=== PATIENT | male | born 2000 | race Caucasian/White ===

== ENCOUNTER 2021-12-18 05:55 | Day surgery (SDC) | payer OTHER, MEDICARE, MEDICAID ==
[~2021-12-18] VITALS: Ht 152.4 cm; Wt 37.7 kg
[~2021-12-18 05:55] MED LIST: CLON0.1T2 PO; DIVA125T32 PO; MELA5TAB40 PO; POLY17PO47 PO; THIO10TA PO
[2021-12-18] MEDS ORDERED: LIDOCAINE/PF 2% 5 ML SYRINGE IVP ONE (05:56)
[2021-12-18] MEDS ORDERED: DEXAMETHASONE SOD PHOS 4 MG/ML VIAL IVP ONE (05:56)
[2021-12-18] MEDS ORDERED: MIDAZOLAM HCL 2 MG/2 ML VIAL IVP ONE (05:56)
[2021-12-18] MEDS ORDERED: ONDANSETRON HCL 4 MG/2 ML VIAL IVP ONE (05:56)
[2021-12-18] MEDS ORDERED: FentaNYL CITRATE PF 100 MCG/2 ML VIAL IVP ONE (05:56)
[2021-12-18] MEDS ORDERED: KETAMINE HCL 50 MG/ML 10 ML VIAL IVP ONE (05:56)
[2021-12-18] MEDS ORDERED: PROPOFOL 1% 20 ML VIAL IVP ONE (05:56)
[2021-12-18] MEDS ORDERED: ROCURONIUM BROMIDE 10 MG/ML 5 ML VIAL IVP ONE (05:56)
[2021-12-18] MEDS ORDERED: RINGERS SOLUTION,LACTATED 1,000 ML IV ONE ×2 (06:04→06:30)
[2021-12-18 06:34] LABS: COVID AG,FIA SOURCE NASOPHARYNGEAL
[2021-12-18] MEDS ORDERED: AMPICILLIN SODIUM 2 GM/NS 100 ML IV ONE (07:30)
[2021-12-18 07:34] LABS: BASOPHILS % (AUTO) 0.2 % (0.0-2.0); EOSINOPHILS % (AUTO) 0.1 % (1.0-6.0); HEMATOCRIT 38.6 % (41-53); HEMOGLOBIN 13.1 g/dL (13.5-17.5); LYMPHOCYTES % (AUTO) 29.4 % (22.0-44.0); MEAN CORPUSCULAR HEMOGLOBIN 28.3 pg (26.0-34.0); MEAN CORPUSCULAR HGB CONC 33.9 G/dL (31.0-37.0); MEAN CORPUSCULAR VOLUME 83 fL (80-100); MONOCYTES % (AUTO) 9.6 % (2.0-9.0); NEUTROPHILS # (AUTO) 6.2 K/uL (1.8-7.7); NEUTROPHILS % (AUTO) 60.7 % (40.0-70.0); PLATELET COUNT (AUTO) 212 K/uL (150-450); RED BLOOD CELL COUNT(AUTO) 4.63 MIL/uL (4.50-5.90); RED CELL DISTRIBUTION WIDTH 16.7 % (11.5-14.5)
[2021-12-18] MEDS ORDERED: CLINDAMYCIN 600 MG/D5% WATER 50 ML IV ONE (07:45)
[2021-12-18 07:48] LABS: ANION GAP 14 mmol/L (8-16); CARBON DIOXIDE 23 mmol/L (22-29); CHLORIDE 107 mmol/L (98-107); CREATININE 0.64 mg/dL (0.60-1.30); GLOMERULAR FILTR. RATE CALC > 60 mL/min (>60); GLUCOSE,RANDOM 122 mg/dL (70-110); POTASSIUM 3.8 mmol/L (3.5-5.1); SODIUM SERUM 144 mmol/L (136-145); UREA NITROGEN, BLOOD 30 mg/dL (7-18)
[2021-12-18 07:49] LABS: ALANINE AMINOTRANSFERASE 35 U/L (12-78); ALBUMIN 3.4 g/dL (3.4-5.0); ALKALINE PHOSPHATASE 88 U/L (46-116); ASPARTATE AMINOTRANSFERASE 25 U/L (15-37); BILIRUBIN,TOTAL 0.2 mg/dL (0.1-1.0); TOTAL PROTEIN, SERUM 7.9 g/dL (6.4-8.2)
[2021-12-18 07:51] LABS: INR 1.1 (0.9-1.1)
[2021-12-18] MEDS ORDERED: FentaNYL CITRATE PF 100 MCG/2 ML VIAL IVP PRN (09:30)
[2021-12-18] MEDS ORDERED: SUGAMMADEX SODIUM 200 MG/2 ML VIAL IVP ONE (09:35)
[2021-12-18] MEDS ORDERED: OXYGEN THERAPY IH SCH (20:00)
== END 2021-12-18 11:15 | disposition home or self-care (01) ==
LOC: SURGERY 05:55
PROVIDERS: ATTEND Dentist General Practice
DX: K02.9 Dental caries, unspecified (principal); K05.30 Chronic periodontitis, unspecified; F84.0 Autistic disorder; Z79.01 Long term (current) use of anticoagulants; Z79.899 Other long term (current) drug therapy; Z98.890 Other specified postprocedural states; Z88.1 Allergy status to other antibiotic agents; Z88.8 Allergy status to other drugs, medicaments and biological substances
CPT/HCPCS: 36415; 41899; 71045; 80053; 85025; 85610; 85730; 87426; 93005; C9803; J1100; J2250; J2405; J2704; J3010; J3490 ×4; J7120; Q9967

== ENCOUNTER 2024-10-05 06:30 | Day surgery (SDC) | payer OTHER, MEDICARE ==
[~2024-10-05] VITALS: Ht 157.5 cm; Wt 44.5 kg
[2024-10-05] MEDS ORDERED: SUGAMMADEX SODIUM 200 MG/2 ML VIAL IVP ONE (06:41)
[2024-10-05] MEDS ORDERED: PROPOFOL 1% 20 ML VIAL IVP ONE (06:41)
[2024-10-05] MEDS ORDERED: LIDOCAINE/PF 2% 5 ML SYRINGE IVP ONE (06:41)
[2024-10-05] MEDS ORDERED: DEXAMETHASONE SOD PHOS 4 MG/ML VIAL ONE (06:41)
[2024-10-05] MEDS ORDERED: ROCURONIUM BROMIDE 10 MG/ML 5 ML VIAL ONE (06:41)
[2024-10-05] MEDS ORDERED: 0.9% SODIUM CHLORIDE 10 ML VIAL ONE (06:41)
[2024-10-05] MEDS ORDERED: ONDANSETRON HCL 4 MG/2 ML VIAL ONE (06:41)
[2024-10-05] MEDS ORDERED: DIVA125C20 PO (07:36)
[2024-10-05] MEDS ORDERED: SENN-374 PO (07:36)
[2024-10-05] MEDS ORDERED: QUET100T34 PO (07:36)
[2024-10-05] MEDS ORDERED: HYOS-28 PO (07:36)
[2024-10-05] MEDS ORDERED: TRAZ-252 PO (07:36)
[2024-10-05] MEDS ORDERED: DOCU-412 PO (07:36)
[2024-10-05] MEDS ORDERED: CHLO25TA70 PO (07:36)
[2024-10-05] MEDS: RINGERS SOLUTION,LACTATED 1,000 ML IV ONE (08:59)
[2024-10-05] MEDS ORDERED: CLINDAMYCIN 600 MG/D5% WATER 50 ML IV ONE (09:00)
[2024-10-05 09:13] LABS: BASOPHILS % (AUTO) 0.4 % (0.0-2.0); EOSINOPHILS % (AUTO) 0.2 % (1.0-6.0); HEMATOCRIT 36.2 % (41-53); HEMOGLOBIN 11.7 g/dL (13.5-17.5); LYMPHOCYTES # (AUTO) 3.4 K/uL (1.0-4.8); LYMPHOCYTES % (AUTO) 32.7 % (22.0-44.0); MEAN CORPUSCULAR HEMOGLOBIN 25.1 pg (26.0-34.0); MEAN CORPUSCULAR HGB CONC 32.4 G/dL (31.0-37.0); MEAN CORPUSCULAR VOLUME 77 fL (80-100); MONOCYTES # (AUTO) 0.8 K/uL (0.1-1.0); NEUTROPHILS # (AUTO) 6.1 K/uL (1.8-7.7); NEUTROPHILS % (AUTO) 58.7 % (40.0-70.0); PLATELET COUNT (AUTO) 195 K/uL (150-450); RED BLOOD CELL COUNT(AUTO) 4.68 MIL/uL (4.50-5.90); RED CELL DISTRIBUTION WIDTH 17.9 % (11.5-14.5); WHITE BLOOD COUNT (AUTO) 10.5 K/uL (4.5-11.0)
[2024-10-05 09:21] LABS: ANION GAP 6 mmol/L (8-16); CALCIUM, TOTAL 8.5 mg/dL (8.8-10.5); CARBON DIOXIDE 27 mmol/L (22-29); CHLORIDE 109 mmol/L (98-107); CREATININE 0.63 mg/dL (0.60-1.30); GLOMERULAR FILTR. RATE CALC > 60 mL/min (>60); GLUCOSE,RANDOM 100 mg/dL (70-110); POTASSIUM 4.2 mmol/L (3.5-5.1); SODIUM SERUM 142 mmol/L (136-145); UREA NITROGEN, BLOOD 21 mg/dL (7-18)
[2024-10-05 09:25] LABS: PROTHROMBIN TIME 11.8 SEC (9.4-11.6)
[2024-10-05 09:26] LABS: ALANINE AMINOTRANSFERASE 35 U/L (12-78); ALBUMIN 2.9 g/dL (3.4-5.0); ALKALINE PHOSPHATASE 105 U/L (46-116); ASPARTATE AMINOTRANSFERASE 31 U/L (15-37); BILIRUBIN,TOTAL 0.2 mg/dL (0.1-1.0); TOTAL PROTEIN, SERUM 6.9 g/dL (6.4-8.2)
== END 2024-10-05 11:10 | disposition home or self-care (01) ==
LOC: SURGERY 06:30
PROVIDERS: ATTEND Dentist General Practice
DX: K02.9 Dental caries, unspecified (principal); K05.30 Chronic periodontitis, unspecified; F84.0 Autistic disorder; K59.00 Constipation, unspecified; F41.9 Anxiety disorder, unspecified; G40.909 Epilepsy, unspecified, not intractable, without status epilepticus; R62.50 Unspecified lack of expected normal physiological development in childhood; Z79.01 Long term (current) use of anticoagulants; Z79.899 Other long term (current) drug therapy; Z88.8 Allergy status to other drugs, medicaments and biological substances
CPT/HCPCS: 41899; 71045; 80053; 85025; 85610; 85730; 36415; 93005; J2704; J3490 ×4; J1100; J2405; Z7610

== ENCOUNTER 2025-03-02 19:29 | Emergency (ER) | payer OTHER, MEDICARE ==
[~2025-03-02] VITALS: Ht 162.6 cm; Wt 59.1 kg
[~2025-03-02 19:29] MED LIST changes: +CHLO25TA82 PO; +DIVA125C20 PO; +DOCU-412 PO; +HYOS-28 PO; +QUET100T34 PO; +SENN-374 PO; +TRAZ-252 PO
[2025-03-02 19:41] VITALS: TEMP 97.3
[2025-03-02 20:52] LABS: BASOPHILS % (AUTO) 0.2 % (0.0-2.0); EOSINOPHILS % (AUTO) 0.7 % (1.0-6.0); HEMATOCRIT 37.6 % (41-53); HEMOGLOBIN 12.4 g/dL (13.5-17.5); LYMPHOCYTES # (AUTO) 3.2 K/uL (1.0-4.8); MEAN CORPUSCULAR HEMOGLOBIN 25.3 pg (26.0-34.0); MEAN CORPUSCULAR VOLUME 77 fL (80-100); MONOCYTES # (AUTO) 0.8 K/uL (0.1-1.0); MONOCYTES % (AUTO) 8.8 % (2.0-9.0); NEUTROPHILS # (AUTO) 5.2 K/uL (1.8-7.7); NEUTROPHILS % (AUTO) 56.3 % (40.0-70.0); PLATELET COUNT (AUTO) 169 K/uL (150-450); RED BLOOD CELL COUNT(AUTO) 4.91 MIL/uL (4.50-5.90); RED CELL DISTRIBUTION WIDTH 17.8 % (11.5-14.5); WHITE BLOOD COUNT (AUTO) 9.3 K/uL (4.5-11.0)
[2025-03-02] MEDS: SODIUM PHOSPHATE,MONO-DIBASIC 133 ML ENEMA PR ONE (20:57)
[2025-03-02 21:02] LABS: ANION GAP 3 mmol/L (8-16); CALCIUM, TOTAL 8.8 mg/dL (8.8-10.5); CARBON DIOXIDE 30 mmol/L (22-29); CHLORIDE 107 mmol/L (98-107); CREATININE 0.72 mg/dL (0.60-1.30); GLOMERULAR FILTR. RATE CALC > 60 mL/min (>60); GLUCOSE,RANDOM 116 mg/dL (70-110); POTASSIUM 4.1 mmol/L (3.5-5.1); SODIUM SERUM 140 mmol/L (136-145); UREA NITROGEN, BLOOD 25 mg/dL (7-18)
[2025-03-02 21:11] LABS: LACTIC ACID 0.7 mmol/L (0.4-2.0)
[2025-03-02] MEDS ORDERED: POLY119P3 PO (22:18)
[2025-03-02] MEDS ORDERED: GOLY4L PO (22:23)
[2025-03-02 23:00] VITALS: BP 134/99; PULSE 99; RESP 16; O2SAT 100
[2025-03-03] MEDS ORDERED: QUET300T2 PO (16:38)
[2025-03-03] MEDS ORDERED: HYDR50CA7 PO (16:38)
[2025-03-03] MEDS ORDERED: LORA0.5T20 PO (16:38)
[2025-03-03] MEDS ORDERED: QUET50TA24 PO (16:51)
[2025-03-03] MEDS ORDERED: THIO50TA PO (16:51)
[2025-03-03] MEDS ORDERED: CHLO50TA53 PO (16:52)
== END 2025-03-03 00:09 | disposition home or self-care (01) ==
LOC: EMS 19:29
DX: K59.00 Constipation, unspecified (principal); R10.31 Right lower quadrant pain; F84.0 Autistic disorder; Z88.0 Allergy status to penicillin; Z79.899 Other long term (current) drug therapy
CPT/HCPCS: 71045; 74018; 80048; 83605; 85025; 99284; 36415-L1; 36415-TC

== ENCOUNTER 2025-03-03 15:15 | Emergency (ER) | payer MEDICARE, OTHER ==
[~2025-03-03] VITALS: Ht 162.6 cm; Wt 48.1 kg
[~2025-03-03 15:15] MED LIST changes: +GOLY4L PO; +POLY119P3 PO
[2025-03-03 16:13] LABS: BASOPHILS % (AUTO) 0.2 % (0.0-2.0); EOSINOPHILS % (AUTO) 1.4 % (1.0-6.0); HEMATOCRIT 36.4 % (41-53); LYMPHOCYTES # (AUTO) 2.3 K/uL (1.0-4.8); LYMPHOCYTES % (AUTO) 31.5 % (22.0-44.0); MEAN CORPUSCULAR HEMOGLOBIN 25.4 pg (26.0-34.0); MEAN CORPUSCULAR HGB CONC 32.9 G/dL (31.0-37.0); MEAN CORPUSCULAR VOLUME 77 fL (80-100); MONOCYTES # (AUTO) 0.5 K/uL (0.1-1.0); MONOCYTES % (AUTO) 6.8 % (2.0-9.0); NEUTROPHILS # (AUTO) 4.4 K/uL (1.8-7.7); NEUTROPHILS % (AUTO) 60.1 % (40.0-70.0); PLATELET COUNT (AUTO) 154 K/uL (150-450); RED BLOOD CELL COUNT(AUTO) 4.72 MIL/uL (4.50-5.90); RED CELL DISTRIBUTION WIDTH 17.9 % (11.5-14.5); WHITE BLOOD COUNT (AUTO) 7.3 K/uL (4.5-11.0)
[2025-03-03 16:22] LABS: ANION GAP 6 mmol/L (8-16); CALCIUM, TOTAL 8.3 mg/dL (8.8-10.5); CARBON DIOXIDE 30 mmol/L (22-29); CHLORIDE 103 mmol/L (98-107); CREATININE 0.57 mg/dL (0.60-1.30); GLOMERULAR FILTR. RATE CALC > 60 mL/min (>60); GLUCOSE,RANDOM 97 mg/dL (70-110); POTASSIUM 3.7 mmol/L (3.5-5.1); SODIUM SERUM 139 mmol/L (136-145); UREA NITROGEN, BLOOD 22 mg/dL (7-18)
[2025-03-03 16:26] LABS: VALPROIC ACID 80 mcg/mL (50-100)
[2025-03-03 16:31] LABS: LACTIC ACID 0.4 mmol/L (0.4-2.0)
[2025-03-03] MEDS ORDERED: IOHEXOL 350 MG/ML 100 ML VIAL ONE (16:36)
[2025-03-03] MEDS ORDERED: HYDR50CA7 PO (16:38)
[2025-03-03] MEDS ORDERED: SODIUM CHLORIDE 0.9% 100 ML ONE (16:38)
[2025-03-03] MEDS ORDERED: QUET300T2 PO (16:38)
[2025-03-03] MEDS ORDERED: LORA0.5T20 PO (16:38)
[2025-03-03] MEDS ORDERED: QUET50TA24 PO (16:51)
[2025-03-03] MEDS ORDERED: THIO50TA PO (16:51)
[2025-03-03] MEDS ORDERED: CHLO50TA53 PO (16:52)
[2025-03-03] MEDS: MIDAZOLAM HCL 5 MG/ML VIAL IVP ONE (17:42)
[2025-03-03 18:19] LABS: APPEARANCE,URINE CLEAR (CLEAR); BILIRUBIN,URINE NEGATIVE (NEGATIVE); COLOR,URINE LIGHT YELLOW (YELLOW); GLUCOSE, URINE (UA) NEGATIVE (NEGATIVE); KETONES,URINE NEGATIVE (NEGATIVE); LEUKOCYTE ESTERASE ,URINE NEGATIVE (NEGATIVE); NITRATE,URINE NEGATIVE (NEGATIVE); OCCULT BLOOD,URINE NEGATIVE (NEGATIVE); PH,URINE 6.5 (5.0-8.0); PROTEIN,URINE NEGATIVE (NEGATIVE); SPECIFIC GRAVITIY, URINE 1.037 (1.003-1.030); UROBILINOGEN,URINE <=1.0 mg/dL (<=1.0)
[2025-03-03] MEDS: SODIUM CHLORIDE 0.9% 2,000 ML IV ONE (18:20)
[2025-03-03 18:35] LABS: BACTERIA,URINE None Seen /HPF (None Seen); RBC,URINE None Seen /HPF (0-2); WBC,URINE None Seen /HPF (0-5)
[2025-03-03 18:59] VITALS: BP 117/81; PULSE 67; RESP 16; O2SAT 99
== END 2025-03-03 20:59 | disposition home or self-care (01) ==
LOC: EMS 15:15
DX: S01.81XA Laceration without foreign body of other part of head, initial encounter (principal); F84.0 Autistic disorder; K59.00 Constipation, unspecified; R56.9 Unspecified convulsions; Z79.899 Other long term (current) drug therapy; Z88.8 Allergy status to other drugs, medicaments and biological substances; Z88.0 Allergy status to penicillin; W08.XXXA Fall from other furniture, initial encounter; X58.XXXA Exposure to other specified factors, initial encounter; Y92.89 Other specified places as the place of occurrence of the external cause; Y99.8 Other external cause status
CPT/HCPCS: 70450; 99285; 96360; 96361; 80048; 80164; 81001; 83605; 85025; 36415; 70486; 72132; 74177; 12013; 99152; Q9967; J2250; J7030; J7050

== ENCOUNTER 2025-03-22 08:31 | Emergency (ER) | payer MEDICARE, OTHER ==
[~2025-03-22] VITALS: Ht 170.2 cm; Wt 47.7 kg
[~2025-03-22 08:31] MED LIST changes: -CHLO25TA82 PO; +CHLO50TA53 PO; -DIVA125T32 PO; -GOLY4L PO; +HYDR50CA7 PO; +LORA0.5T20 PO; -POLY17PO47 PO; -QUET100T34 PO; +QUET300T2 PO; +QUET50TA24 PO; -THIO10TA PO; +THIO50TA PO
[2025-03-22 08:36] VITALS: BP 108/68; PULSE 86; RESP 18; TEMP 98.4; O2SAT 99
== END 2025-03-22 08:55 | disposition home or self-care (01) ==
LOC: EMS 08:42
DX: S01.81XD Laceration without foreign body of other part of head, subsequent encounter (principal); F84.0 Autistic disorder; Z88.0 Allergy status to penicillin; Z88.8 Allergy status to other drugs, medicaments and biological substances; Z79.899 Other long term (current) drug therapy; X58.XXXD Exposure to other specified factors, subsequent encounter
CPT/HCPCS: 99281; Z7502